=== PATIENT | male | born 1990 | race Caucasian/White ===

== ENCOUNTER 2022-01-04 23:49 | Emergency (ER) | payer SELFPAY ==
[~2022-01-04] VITALS: Ht 182.9 cm; Wt 99.0 kg
[2022-01-05] MEDS ORDERED: LEXAPRO10 MG PO (00:32)
[2022-01-05] MEDS ORDERED: WELLBUTRIN XL150 MG PO (00:32)
[2022-01-05] MEDS ORDERED: ULTRAM50 MG PO (00:53)
== END 2022-01-05 01:15 | disposition home or self-care (01) ==
LOC: ED 23:49
DX: S43.004A Unspecified dislocation of right shoulder joint, initial encounter (principal); Z88.0 Allergy status to penicillin; Z79.899 Other long term (current) drug therapy; W18.30XA Fall on same level, unspecified, initial encounter; Y93.02 Activity, running
CPT/HCPCS: 73030; 99283-25

== ENCOUNTER 2024-05-19 06:53 | Day surgery (SDC) | payer BC ==
[2024-05-14 08:44] VITALS: BP 129/85
[~2024-05-19] VITALS: Ht 175.3 cm; Wt 79.5 kg
[~2024-05-19 06:53] MED LIST: DEXAMETHASONE SOD PHOS 4 MG/ML VIAL ONE; FAMOTIDINE 20 MG/ 2 ML VIAL ONE; KETOROLAC TROMETHAMINE 30 MG/ML VIAL ONE; LACTATED RINGER'S 1,000 ML IV ONE; LACTATED RINGER'S 1,000 ML IV SCH; LAMICTAL25 MG PO; LEXAPRO10 MG PO; METHYLPHENIDATE18 MG PO; METOCLOPRAMIDE HCL 10 MG/2 ML SDV ONE; MIDAZOLAM HCL 2 MG/2 ML VIAL ONE; RITALIN LA10 MG PO; ULTRAM50 MG PO; WELLBUTRIN XL150 MG PO; fentaNYL citrate 100 MCG/2 ML VIAL ONE; ondansetron HCL 4 MG/2 ML VIAL ONE; propofoL 200 MG/20 ML VIAL ONE
[2024-05-19] MEDS ORDERED: CEFAZOLIN SODIUM 1 GM/10 ML SYR IV SCH (07:00)
[2024-05-19] MEDS ORDERED: IBLOOD GLUCOSE TEST STRIP 1 EA TEST VI PRN ×2 (07:00→07:30)
[2024-05-19] MEDS ORDERED: OXYMETAZOLINE HCL 30 ML BTL NAS SCH (07:00)
[2024-05-19] MEDS ORDERED: LIDOCAINE HCL 1% 5 ML SDV INJ ONE (07:00)
[2024-05-19 07:06] VITALS: BP 117/70
[2024-05-19] MEDS ORDERED: METOCLOPRAMIDE HCL 10 MG/2 ML SDV IV PRN (07:30)
[2024-05-19] MEDS ORDERED: MORPHINE SULFATE 10 MG/ML VIAL IV PRN (07:30)
[2024-05-19] MEDS ORDERED: droPERidol 5 MG/2 ML VIAL IV PRN (07:30)
[2024-05-19] MEDS ORDERED: NALOXONE HCL 0.4 MG SYR IV PRN (07:30)
[2024-05-19] MEDS ORDERED: fentaNYL citrate 50 MCG/ML SDV IV PRN (07:30)
[2024-05-19] MEDS ORDERED: PROCHLORPERAZINE EDISYLATE 10 MG/2 ML VIAL IV PRN (07:30)
[2024-05-19] MEDS ORDERED: ondansetron HCL 4 MG/2 ML VIAL IV PRN (07:30)
[2024-05-19] MEDS ORDERED: SUCCINYLCHOLINE IN 0.9% NACL 200 MG/10 ML SYRINGE ONE (08:18)
[2024-05-19] MEDS ORDERED: LIDOCAINE HCL 4% 5 ML AMP ONE (08:18)
[2024-05-19] MEDS ORDERED: dexmedeTOMIDine HCl 200 MCG/2 ML VIAL ONE (08:19)
[2024-05-19] MEDS ORDERED: ACETA/HYDROCODONE 325/7.5 15 ML BTL PO PRN (10:15)
--- NOTE | 2024-05-19 10:30 | NUR ---
[facility]19/24 1030 [facility] NON RESPONSIVE TO NOXIOUS STIMULI WITH OPA IN PLACE. SEPTAL BUTTON TIED TO END OF NOSE INTACT. 1022 PT REACTIVE. OPA REMOVED. 1024 PT TRYING TO BREATH THRU NOSE. ENCOURAGED TO BREATH THRU MOUTH. 1028 REPOSITIONED SELF. R NOSTRIL WITH RED DRAINAGE PRESENT. ATTEMPTED TO PLACE DRIP PAD WITH NO SUCCESS. DRIED DRAINAGE FROM R NOSTRIL WITH GUAZE. 1030 NO DRAINAGE FROM R NOSTRIL AT THIS TIME. RESTING. REU.
[2024-05-19 11:01] VITALS: BP 121/68
[2024-05-19] MEDS ORDERED: ACETAMINOPHEN 1,000 MG/100 ML VIAL ONE (11:10)
[2024-05-19] MEDS ORDERED: ACETAMINOPHEN 1,000 MG/100 ML VIAL IV ONE (11:30)
[2024-05-19 12:03] VITALS: BP 123/60
[2024-05-19 13:10] VITALS: BP 119/73
--- NOTE | 2024-05-19 16:26 | NUR ---
LE 1100-PT BACK TO ROOM FROM PACU ON . RECEIVED REPORT FROM JUAN CARCAMO. PT IS DROWSY. RESP EVEN AND UNLABORED. PT RATES PAIN A 5/10. DENIES NAUSEA. NASAL PACKING IN PLACE. SMALL AMOUNT OF RED DRAINAGE NOTE AROUND RIGHT NOSTRIL. PROVIDED PT WITH ICE WATER. HOB ELEVATED SLIGHTLY. FAMILY AT BEDSIDE. CALL LIGHT WITHIN REACH. LE 1113-IV TYLENOL STARTED. RED DRAINAGE CONTINUES UNDER RIGHT NOSTRIL, DRIP PAD PLACED.
--- NOTE | 2024-05-19 16:41 | NUR ---
LE 1203-PT LAYING IN BED WITH EYES CLOSED. AWAKES EASILY WITH VERBAL STIMULI. RATES PAIN 4/10. DENIES NAUSEA. MINIMAL DRAINAGE NOTED ON DRIP PAD. NO OTHER NEEDS AT THIS TIME. CALL LIGHT WITHIN REACH.
--- NOTE | 2024-05-19 16:43 | NUR ---
1310-PT IS DROWSY, OPENS EYES WITH VERBAL SIMULI. RESP EVEN AND UNLABORED. RATES PAIN 3/10, DENIES NAUSEA. SMALL AMOUNT OF DRAINAGE ON DRIP PAD. 1315-PT UP TO THE RESTROOM. GAIT STEADY AND TOLERATED WELL. PT ABLE TO VOID. 1318-PT BACK TO ROOM AND LAYS DOWN. PT WOULD LIKE AN OTHER 15 MINUTES BEFORE GETTING DRESSED. CALL LIGHT WITHIN REACH. 1330-PT GETTING DRESSED. FAMILY IN ROOM.
--- NOTE | 2024-05-19 16:48 | NUR ---
GINA 1340-PROVIDED PT AND HIS FATHER WITH DISCHARGE INSTRUCTIONS. WENT OVER POSTOP MEDICATIONS. ALL QUESTIONS ANSWERED. DRIP PAD CHANGED. PT AMBULATES TO WHEELCHAIR AND RIDE PROVIDED TO FRONT OF HOSPITAL WHERE HES FATHER WAS WAITING WITH THE CAR.
--- NOTE | 2024-05-19 16:57 | OR ---
[facility] [address], [place] [address] Signed DATE OF OPERATION: 05/19/2024 SURGEON: Richard Toth MD PREOPERATIVE DIAGNOSES: 1. Obstructive sleep apnea. 2. Tonsillar hypertrophy. 3. Septal deformity. 4. Inferior turbinate hypertrophy, bilateral. POSTOPERATIVE DIAGNOSES: 1. Obstructive sleep apnea. 2. Tonsillar hypertrophy. 3. Septal deformity. 4. Inferior turbinate hypertrophy, bilateral. PROCEDURES: 1. Septoplasty. 2. Cautery, bilateral inferior turbinates. 3. Tonsillectomy. 4. Palatopharyngoplasty. ANESTHESIA: General, orotracheal; Alex SUNSHINE PREOP HISTORY: Reza is a 34-year-old man with obstructive sleep apnea, difficulty with CPAP due to nasal congestion. Office exam has shown hypertrophic turbinates, septal deformity, prominent soft palate, uvula with tonsils 1+. He is taken to the operating room for the above-mentioned procedures. OPERATIVE PROCEDURE AND FINDINGS: After informed consent, the patient was taken to the operating room, placed in supine position, where general orotracheal anesthesia was induced. Patient and procedure were verified. The patient received preoperative intravenous Ancef and intranasal oxymetazoline. The patient was repositioned. Headlight exam of the nasal cavity showed septal deformity with inferior ridges bilaterally obstructive. The septal cartilage and bone were removed with the Ny, trimming the septum, improving the nasal airway, minimal bleeding. Electronically Signed By: RICHARD TOTH MD 05/19/24 1657 PATIENT NAME: REZA CANTRELL OPERATIVE REPORT DATE OF : 86 REPORT #: [id number] PHYSICIAN: RICHARD TOTH MD PCP: NO PRIMARY CARE PHYSICIAN REPORT IS CONFIDENTIAL AND NOT TO BE RELEASED WITHOUT AUTHORIZATION [facility] [address], [place] [address] Signed Inferior turbinates were then cauterized with a long handle needle point cautery starting on the left side. Multiple transmucosal passes with the needle point cautery on the medial and inferior surface of the inferior turbinate starting anteriorly, extending all the way back posteriorly. Excellent shrinkage of the turbinate was obtained. Same procedure on the right inferior turbinate. The bleeding was controlled. Packing was placed. Trimmed Merocel, one piece each side tied anteriorly over a pad. The patient was repositioned. McIvor mouthgag placed into suspension. Headlight exam of the pharynx showed moderately hypertrophic obstructive tonsils, soft palate and uvula. A long and obstructive left tonsil was grasped with a tenaculum, retracted medially and removed from its fossa with mucosal sparing incision with Coblation. Same procedure on the right tonsil. Palatopharyngoplasty was then performed. The extent of excision determined by palpation of the soft palate against the posterior pharyngeal wall. Basically, the superior tonsil fossa incisions were extended over the midline and posterior tonsillar pillars on each side partially resected and extended up to the soft palate. The tissue was removed, sent to Pathology. Hemostasis was obtained with Coblation. Hemostasis was verified. The incision was then closed with 4-0 interrupted Vicryl, reapproximating posterior and anterior tonsillar pillar mucosa on each side extending up, reapproximating the posterior and anterior soft palate mucosa. Excellent closure was obtained. Hemostasis verified. The pharynx suctioned clear of blood and secretions. Mouth gag was removed. The patient was awakened, extubated, and transported to the recovery room in good condition. No complications. BLOOD LOSS: Minimal. SPECIMEN: To Pathology. DRAINS: No drains. PACKING: One piece of Merocel in each nostril. Richard Toth MD GC/MODL Electronically Signed By: RICHARD TOTH MD 05/19/24 1657 PATIENT NAME: REZA CANTRELL OPERATIVE REPORT DATE OF : 86 REPORT #: [id number] PHYSICIAN: RICHARD TOTH MD PCP: NO PRIMARY CARE PHYSICIAN REPORT IS CONFIDENTIAL AND NOT TO BE RELEASED WITHOUT AUTHORIZATION [address] [address] Signed /[id number] Copies: ~ Electronically Signed By: RICHARD TOTH MD 05/19/24 1657 PATIENT NAME: REZA CANTRELL OPERATIVE REPORT DATE OF : 86 REPORT #: [id number] PHYSICIAN: RICHARD TOTH MD PCP: NO PRIMARY CARE PHYSICIAN REPORT IS CONFIDENTIAL AND NOT TO BE RELEASED WITHOUT AUTHORIZATION
== END 2024-05-19 13:40 | disposition home or self-care (01) ==
LOC: DS 06:53 → OPS 06:53 → DS 08:30 → OPS 13:40
PROVIDERS: ATTEND Otolaryngology
PROC: 09BM0ZZ Excision of Nasal Septum, Open Approach (ICD-10-PCS; principal; 2024-05-19 08:30)
PROC: 09BL0ZZ Excision of Nasal Turbinate, Open Approach (ICD-10-PCS; 2024-05-19 08:30)
PROC: 0CBPXZZ Excision of Tonsils, External Approach (ICD-10-PCS; 2024-05-19 08:30)
PROC: 0CB30ZZ Excision of Soft Palate, Open Approach (ICD-10-PCS; 2024-05-19 08:30)
DX: G47.33 Obstructive sleep apnea (adult) (pediatric) (principal); J35.1 Hypertrophy of tonsils; J34.2 Deviated nasal septum; J34.3 Hypertrophy of nasal turbinates; Z88.1 Allergy status to other antibiotic agents
CPT/HCPCS: J0131; J0330; J0690; J1100; J1885; J2250; J2405; J2704; J2765; J3010; J7121